=== PATIENT | male | born 1950 | race Two or more races ===

== ENCOUNTER 2017-12-15 11:00 | Outpatient (CLI) | payer MEDICARE, OTHER | END 2017-12-15 23:59 | disposition home or self-care (01) | LOC: MSC 11:00 | PROVIDERS: ATTEND Anesthesiology | DX: G89.29 Other chronic pain (principal); M46.96 Unspecified inflammatory spondylopathy, lumbar region; M54.5 Low back pain; M51.36 Other intervertebral disc degeneration, lumbar region; M51.26 Other intervertebral disc displacement, lumbar region; M96.1 Postlaminectomy syndrome, not elsewhere classified; M54.16 Radiculopathy, lumbar region; M47.27 Other spondylosis with radiculopathy, lumbosacral region; M25.9 Joint disorder, unspecified; M53.3 Sacrococcygeal disorders, not elsewhere classified; M43.02 Spondylolysis, cervical region; Z98.1 Arthrodesis status; I25.2 Old myocardial infarction; I25.10 Atherosclerotic heart disease of native coronary artery without angina pectoris; Z95.5 Presence of coronary angioplasty implant and graft; N18.6 End stage renal disease; Z99.2 Dependence on renal dialysis ==